=== PATIENT | female | born 1955 | race Caucasian/White ===

== ENCOUNTER 2019-06-03 08:01 | Outpatient (CLI) | payer MEDICARE, BC, SELFPAY ==
--- NOTE | 2019-06-03 08:14 | XR_ITS ---
WS: [id number] PELVIS AND RIGHT HIP HISTORY: R HIP PAIN/LIMP COMPARISON: None available. Right hip: No acute fracture or dislocation. Severe narrowing of the joint space. Bone upon bone with sclerosis. Subchondral cystic changes and hypertrophic osteophyte development on both sides of the j oint space. Only mild narrowing of the LEFT hip joint. No osseous destruction. No soft tissue abnormalities. XR/XR hip RT 2-3V wo/w pel* [id number] IMPRESSION: 1. Severe RIGHT hip osteoarthritis. 2. Mild LEFT hip osteoarthritis.
== END 2019-06-03 08:02 | disposition home or self-care (01) ==
LOC: RAD 08:12
PROVIDERS: Family Provider Family Medicine; PCP Family Medicine; Visit Provider Family Medicine
DX: R26.89 Other abnormalities of gait and mobility (principal); M16.0 Bilateral primary osteoarthritis of hip; M25.551 Pain in right hip
CPT/HCPCS: 73502

== ENCOUNTER → 2019-06-23 13:38 | Outpatient (BNVA) | payer BC, MEDICARE, SELFPAY | PROVIDERS: Family Provider Family Medicine; PCP Family Medicine; Referring Provider Family Medicine; Visit Provider Orthopaedic Surgery | DX: M87.851 Other osteonecrosis, right femur (principal); M25.551 Pain in right hip | CPT/HCPCS: 73502 ==

== ENCOUNTER 2019-07-22 11:55 | Inpatient (IN) | payer MEDICARE, BC, SELFPAY ==
[2019-07-15 08:33] VITALS: BMI 23.2
--- NOTE | 2019-07-15 08:56 | ANES.PREANE2 ---
Pre-Anesthetic Assessment Pre-Anesthetic Assessment: Height/Weight: Height 1.69 m Weight 66.224 kg Preop Diagnosis: DJD right hip Proposed Procedure: Operation Date: 07/22/19 10:30 Proposed Procedures p Anterior Total Hip Arthroplasty with Orthalign(Right) - Brandon Guevara DO Familial anesthetic complications: No trouble with anesthesia Social: Social History: No alcohol and No tobacco Exam: Pre-Anes Outpt Exam: alert, oriented x 3, clear to auscultation bilaterally and regular rate & rhythm Airway: Cervical ROM: WNL MP: 2 Additional comments: missing Pulmonary: Pulmonary: None reported Comments: URI in june; had fever, no symptoms now CV/HEM: CV/HEM: None reported : : None reported Hepatic: Hepatic: None reported GI: GI: None reported Metabolic: Metabolic: Hyperlipidemia Musc/skel: Musc/skel: OA/DJD Neuropsych: Neuropsych: None reported Anesthetic Plan: ASA status: 2 Anesthesia: General Risk of > 500 ml blood loss (7ml/kg in children): No PFSH Anesthesia PFSH: Medical History (Updated 06/25/19 @ 15:07 by Brandon Guevara DO) Degenerative arthritis of hip right hip Social History (Updated 06/23/19 @ 13:32 by Gary Thompson LPN) Smoking and tobacco status: never smoked Alcohol intake: never Data Anesthesia Cardiac Studies: No Data to Display
[2019-07-15 09:05] LABS: Add Urine Microscopic? NO
[2019-07-15 09:10] LABS: Basophils # 0.1 10^3/uL (0.0-0.1); Basophils % 1.1 %; Eosinophils # 0.2 10^3/uL (0.0-0.8); Eosinophils % 2.9 %; Hematocrit 38.5 % (37.0-47.0); Hemoglobin 12.8 g/dL (11.5-15.3); Lymphocytes # 1.7 10^3/uL (0.8-4.8); Lymphocytes % 30.4 %; Mean Corpuscular HGB Conc 33.2 g/dL (30.0-36.0); Mean Corpuscular Hemoglobin 27.5 pg (28.0-34.0); Mean Corpuscular Volume 82.8 fL (81-99); Mean Platelet Volume 10.4 fL (7.4-10.4); Monocytes # 0.6 10^3/uL (0.2-0.9); Neutrophils % 54.4 %; Nucleated Red Blood Cells % 0 %; Platelet Count 285 10^3/cmm (130-400); Red Blood Count 4.65 10^6/uL (4.1-5.3); Red Cell Distribution Width 15.7 % (12.1-15.1); White Blood Count 5.6 10^3/uL (4.0-10.0)
[2019-07-15 09:15] LABS: Anion Gap 14.3 (5-19); Blood Urea Nitrogen 17 mg/dL (8-23); Calcium 9.7 mg/dL (8.5-10.5); Carbon Dioxide 26 mmol/L (22-29); Chloride 104 mmol/L (98-107); Glucose 106 mg/dL (65-115); Osmolality Calculated 287 mOsm/kg (285-295); Potassium 4.3 mmol/L (3.5-5.1); Sodium 140 mmol/L (136-145)
[2019-07-15 09:26] LABS: Bilirubin Urine Neg (NEGATIVE); Blood Urine Neg (Negative); Glucose Urine UA Norm (Normal); Ketones Urine Negative (Negative); Leukocyte Esterase Urine Negative (Negative); Nitrate Urine Negative (Negative); Protein Urine Neg (Negative); Sulfosalicylic Acid Urine Negative; Urine Appearance Clear (CLEAR); Urine Color Straw (Yellow); Urobilinogen Urine Norm (Negative)
[2019-07-22] VITALS (24 sets, daily range): BP systolic 90–173; BP diastolic 53–93; PULSE 68–96; RESP 12–20; TEMP 36.3–37.2; O2SAT 92–100
--- NOTE | 2019-07-22 | XR_ITS ---
WS: [id number] XR hip RT 1V wo/w pel [id number] REASON FOR EXAM: OR PICS, ORIF RIGHT HIP FINDINGS: Total hip replacement is noted the prosthesis are seen in good alignment. C-arm images were utilized for insertion of the prosthesis. XR/XR hip RT 1V wo/w pel [id number] IMPRESSION: Hip replacement satisfactory.
--- NOTE | 2019-07-22 | SCC_ITS ---
Procedure Done: Right total hip arthroplasty 48.8 seconds of fluoroscopic guidance, for a cumulative dose of 4.96 mGy, was provided to Dr. Guevara by the radiology department. C-arm images of the RIGHT hip were saved for the patient's permanent record. [facility] CENTERSoila
--- NOTE | 2019-07-22 06:28 | ECG_ITS ---
Measurements Intervals [place] Rate: 67 P: 49 DC: 159 QRS: 14 QRSD: 96 T: 32 QT: 418 QTc: 442 SINUS RHYTHM No previous ECG available for comparison Electronically Signed On 07-22-2019 13:00:46 CDT by Patrizia Leal M.D. [email or web address]
[2019-07-22] MEDS: gabapentin 300 mg Capsule PO (06:40)
[2019-07-22] MEDS: acetaminophen 500 mg Tablet 1000 MG PO ×2 (06:41→20:42)
[2019-07-22] MEDS: ketorolac 30 mg/mL INJ IVP (06:54)
[2019-07-22] MEDS: sodium chloride 0.9% 1,000 ML 30 ML IV (06:54)
[2019-07-22] MEDS: vancomycin 1,000 MG in sodium chloride 0.9% 250 ML 250 MG IV ×2 (07:00→23:19)
--- NOTE | 2019-07-22 07:11 | W.PM.OPSUD ---
Surgery/Procedure H&P Update DATE OF PROCEDURE: July 22, 2019 DATE H&P PERFORMED: 06/27/19 H&P UPDATE INFORMATION: I have reviewed H&P completed within last 30 days PREOP DIAGNOSIS: DJD right hip PRIMARY INDICATION FOR PROCEDURE: as above PLANNED PROCEDURE: Operation Date: 07/22/19 08:00 Proposed Procedures p Anterior Total Hip Arthroplasty with Orthalign(Right) - Brandon Guevara DO
--- NOTE | 2019-07-22 07:59 | PM.OP ---
Operative Report Date of procedure: July 22, 2019 Pre-op Diagnosis: DJD right hip Post-op diagnosis: same Procedure Done: Right total hip arthroplasty Imageless computer-assisted navigation Implants: Iota total hip implants Trident 2 Tritanium cluster hole acetabular shell 56 mm outer diameter alpha code F Trident X3 0 degree polyethylene insert 36 mm inner diameter alpha code F 6.5 mm low-profile hex screw 6.5 mm diameter 30 mm length Accolade 2 127 degree neck angle hip stem size 5 V 40 taper Biolox delta ceramic V 40 femoral head outer diameter 36 mm neck length -5 mm Specimens removed/disposition: Femoral head and neck from right hip Surgeon: Brandon Guevara Anesthesia: General Estimated blood loss (mL): 600 Urine output (mL): 600 Complications: None Findings: Advanced DJD left hip Condition: stable Disposition: PACU Brief History: 64-year-old white female with progressively disabling right hip pain. Range of motion shows it to be limited with pain at extremes of range of motion. X-rays show advanced DJD of right hip. Procedure: 2 g Ancef 1 g vancomycin 1 g of TXA at start of procedure and at start of closure Iota implants Trident X30 degree polyethylene insert 36 mm inner diameter alpha code F Trident tritanium cluster hole acetabular shell 56 mm alpha code F 6.5 mm low profile hip screw 6.5 mm diameter x 30 mm in length Accolade II 132? neck angle hip stem size 5 Biolox delta ceramic V 40 femoral head outer diameter 36 mL neck length -5.0 mm Patient identified. Surgical site signed. Surgical permit signed. Patient received 1 g Vancomycin and 2 g of Ancef IV for surgical prophylaxis. She was taken to the operating room. She was placed under general anesthesia. She was then transferred to the [place] table and positioned for right hip surgery via direct anterior approach. The patient was then sterilely prepped and draped usual fashion. 1 g of TXA was administered intravenousl prior to skin incision.Two small stab wound were made 2-4 cm posterior to the ASIS and 2 threaded pins were placed in a parallel fashion. The Hip Align pelvic base was attached to the parallel pins and secured into place by tightening screws of the pelvic base. A 12 cm skin incision was made with a #10 blade 2 fingerbreadths lateral to and 2 fingerbreadths distal to the anterior superior iliac spine. Full-thickness skin flaps were made down to the level of the fascia overlying the tensor fascia nisa muscle. Skin edge bleeders were coagulated with electrocautery. Using electrocautery the fascia overlying the tensor fascia nisa muscle was incised and with finger dissection the plane between the tensor fascia nisa muscle and the sartorius muscle superficially and the tensor fascia nisa and the rectus femoris muscle deeply was developed retractors were placed about the superior and inferior aspects of the joint capsule about the femoral neck. Circumflex vessels were identified and coagulated with electrocautery and then divided with electrocautery. Using a deep knife a Z-shaped capsular incision was made beginning superior and laterally on the femoral head, then obliquely in the midline of the femoral neck and then medially about the base of the femoral neck. Anterior capsulectomy was performed after further releases were performed medially and laterally about the base of the femoral neck. A proximal femoral tack reference pin was placed for the HipAlign device. Hip navigation registration points were then taken.An oscillating saw was used cut the femoral neck and an additional 3mm napkin ring of of the femoral neck was cut with the saw. The portion of the femoral neck that was divided with the oscillating saw was removed and then using a T-handle corkscrew the femoral head was removed. The femoral head was sized at approximately 48 mm in diameter. Labral tissue was removed using a deep knife and a Rongeur was used to remove remnants of the ligamentum teres. The acetabulum was reamed up to a size 56 reamer using fluoroscopic assistance. A 56 mm acetabular shell was inserted and impacted into place using HipAlign navigation to insert the hip with 40 degrees of hip abduction and 12 degrees of anteversion. The cup was additionally was secured with a 6.5 x 30 mm cancellous screw. The 56 mm polyethylene liner liner 0 degree liner 36 mm inner diameter was inserted and impacted into position. The femur was now prepared by repositioning the limb and extension, adduction and external rotation using the spar of the [place] table. Retractors were placed about the proximal femur. Soft tissue releases about the proximal femur were performed circumferentially. A hook was then attached to the [place] table and the femur was elevated within the wound. The cut surface of the femur was then prepared with a motorized bur followed by a rat tail rasp. We began with the starter broach and up to a size 5 broach. calcar planing was then performed. We then placed a standard offset neck with a trial 36 mm diameter head with a -5 mm neck offset. Fluoroscopic imaging showed that the right hip equal in limb length to the left hip with equal offset compared to the opposite operated hip. Navigation showed 5 mm lengthening this was felt accepctabe due to extreme wear of the hip. Comparing patellas equal lengths were acheived. The hip was dislocated and trial components were removed. The actual size 5 stem was then inserted and I attempted to impact the stem slightly deeper into the femur then the trial had been impacted by 1-2 mm. A ceramic head 36 mm in diameter with a -5 mm offset was then placed on the Spence taper and impacted in position and the hip once again reduced. Fluoroscopic imaging demonstrated slightly lengthened right limb length approximately equal length and offset of the hip as compared to the contralateral hip. Fluoroscopic images demonstrated that the hip was reduced and no apparent complications such as fracture were observed. Navigation showed 5mm of lengthening. The navigation tack was removed. The wound was irrigated with Betadine-containing saline and antibiotic containing saline solution. FloSeal was placed in the wound for hemostasis. Vancomycin powder 1 g was placed in the wound for additional antimicrobial prophylaxis. A large Hemovac drain was placed from inside out. 1 g of TXA was administered intravenously prior to wound closure.The fascia of the tensor fascia nisa muscle was then closed with a combination of interrupted #2 permanent sutures along with a barbed suture. The skin was closed in layers with the ultimate layer being a running Monocryl subcuticular suture followed by Steri-Strips and Dermabond on skin. The navigation base and 2 pins placed in the pelvis were removed. The percutaneous pin sites were reapproximated with Dermabond and Steri-Strips. Sterile dressings were applied. The patient was then aroused from general anesthesia and transferred to the recovery room in stable and satisfactory condition. At the end of the surgical procedure all counts were correct. The patient tolerated the procedure well.
[2019-07-22] MEDS: neomycin-poly-bacitracin oint 28 gm 1 APPLIC TOPICAL (09:33)
[2019-07-22] MEDS: vancomycin 1,000 MG SDV 1000 MG XX (09:34)
[2019-07-22] MEDS: fentaNYL 50 mcg/mL INJ 2mL IVP ×2 (11:54→12:00)
--- NOTE | 2019-07-22 11:54 | XR_ITS ---
WS: [id number] XR hip RT 2-3V wo/w pel* [id number] REASON FOR EXAM: post op right thr FINDINGS: Total hip replacement on the right side the prosthesis in the acetabulum is well seated. Th e stem of the prosthesis in the femoral shaft is normally position. XR/XR hip RT 2-3V wo/w pel* [id number] IMPRESSION: Total hip replacement satisfactory alignment.
[2019-07-22] MEDS: morphine 4 mg/mL SDV 1 mL 2 MG IVP ×2 (12:14→12:16)
[2019-07-22] MEDS: ketorolac 30 mg/mL INJ 15 MG IVP ×2 (13:27→23:34)
[2019-07-22] MEDS: sodium chloride 0.9% 1,000 ML 100 ML IV ×2 (13:28→23:19)
[2019-07-22] MEDS: calcium carbonate 500 mg Chew Tablet 1000 MG PO (16:53)
[2019-07-22] MEDS: iron polysaccharide complex 150 mg Capsule PO (16:53)
[2019-07-22] MEDS: chlorhexidine gluconate 0.12% Btl 473 mL 30 ML MUCOUS MEM ×2 (16:53→20:43)
[2019-07-22] MEDS: sennosides-docusate Tablet 2 TAB PO (16:54)
[2019-07-22] MEDS: oxyCODONE 5 mg IR Tab/Cap PO (16:54)
[2019-07-22] MEDS: ondansetron 2 mg/ML SDV 2 mL 4 MG IVP (17:47)
[2019-07-22] MEDS: atorvastatin 40 mg Tablet 20 MG PO (20:42)
[2019-07-22] MEDS: mupirocin oint 22 gm 1 APPLIC NASAL (20:42)
[2019-07-22] MEDS: apixaban 5 mg Tablet 2.5 MG PO (23:20)
[2019-07-23] VITALS (16 sets, daily range): BP systolic 89–116; BP diastolic 41–69; PULSE 71–108; RESP 14–20; TEMP 36.6–37.2; O2SAT 93–100
[2019-07-23] MEDS: acetaminophen 500 mg Tablet 1000 MG PO ×3 (05:23→20:09)
[2019-07-23 06:47] LABS: Basophils % 0.1 %; Hematocrit 24.8 % (37.0-47.0); Lymphocytes # 1.9 10^3/uL (0.8-4.8); Lymphocytes % 13.6 %; Mean Corpuscular HGB Conc 32.3 g/dL (30.0-36.0); Mean Corpuscular Hemoglobin 27.7 pg (28.0-34.0); Mean Corpuscular Volume 85.8 fL (81-99); Mean Platelet Volume 10.9 fL (7.4-10.4); Monocytes # 1.5 10^3/uL (0.2-0.9); Monocytes % 11.2 %; Neutrophils # 10.3 10^3/uL (1.8-7.7); Neutrophils % 74.7 %; Nucleated Red Blood Cells % 0 %; Platelet Count 232 10^3/cmm (130-400); Red Blood Count 2.89 10^6/uL (4.1-5.3); Red Cell Distribution Width 15.8 % (12.1-15.1); White Blood Count 13.8 10^3/uL (4.0-10.0)
[2019-07-23 07:01] LABS: Anion Gap 9.7 (5-19); Blood Urea Nitrogen 13 mg/dL (8-23); Calcium 8.2 mg/dL (8.5-10.5); Carbon Dioxide 27 mmol/L (22-29); Chloride 109 mmol/L (98-107); Glucose 97 mg/dL (65-115); Osmolality Calculated 290 mOsm/kg (285-295); Potassium 3.7 mmol/L (3.5-5.1); Sodium 142 mmol/L (136-145)
--- NOTE | 2019-07-23 07:29 | PM.PN ---
Subjective Subjective: Interval history: 64-year-old white female postoperative day 1 status post status post right total hip arthroplasty for degenerative arthritis. complaint of lightheadedness today Vitals/I&O/Wt Last Vital Signs Temp 97.9 F 07/23/19 04:43 Pulse 76 07/23/19 04:43 Resp 18 07/23/19 04:43 BP 91/41 07/23/19 04:43 Pulse Ox 96 07/23/19 04:43 07/22/19 07/23/19 07/23/19 22:59 06:59 14:59 Intake Total 110 / 2230 1285 / 3515 Output Total 900 / 2700 715 / 3415 Balance -790 / -470 570 / 100 Physical Exam Const: GENERAL APPEARANCE: cooperative, comfortable and other (pale) NUTRITIONAL APPEARANCE: thin ORIENTATION/CONSCIOUSNESS: Yes awake and Yes oriented to person; not confused and not obtunded Neck/C-Spine: COMMON NORMALS: no JVD Resp: COMMON NORMALS: normal respiratory effort, no retractions and clear to auscultation bilaterally AUSCULTATION: clear to auscultation bilaterally Cardio: COMMON NORMALS: no JVD, regular rate, regular rhythm, S1 normal heart sound and S2 normal heart sound RATE: regular rate RHYTHM: regular rhythm HEART SOUNDS: S1 normal and S2 normal GI: COMMON NORMALS: normal to inspection, nondistended, normoactive bowel sounds, soft to palpation and non-tender PALPATION: Yes soft Extremity: NARRATIVE EXTREMITY EXAM: dressing intact over right hip, Hemovac drain pulled from wound, no calf tenderness bilaterally Neuro: SENSORIUM/ORIENTATION: Yes oriented to person Urinary Catheter Management^: F: Cath Placed During This Visit: yes Urinary Catheter Date of Insertion: 07/22/19 Urinary Catheter Time of Insertion: 08:50 Data : 07/23/19 06:02 07/23/19 06:02 A&P Assessment and plan (1) History of total right hip arthroplasty: remove Shipman catheter drain pulled today from right hip Finish postoperative IV antibiotics Continue VTE prophylaxis with mobilization, SCDs and pharmacologic prophylaxis. Patient highest risk for VTE transfused 2 units of packed red blood cells this patient is symptomatic with hypotension and dizziness with hemoglobin of 8 postoperatively Discharge planning. Discharged with home health when pain is controlled. patient is able to ambulate safely. Status: Acute Code(s): Z96.641 - Presence of right artificial hip joint (2) Postoperative anemia due to acute blood loss: Status: Acute Code(s): D62 - Acute posthemorrhagic anemia Attestations Medical Necessity Statement*: patient requires continued inpatient level care following left total hip arthroplasty. Patientto be transfused 2 units of packed red blood cells. Patient requires physical therapy postoperatively. Pain control needs to be verified prior to discharge Time Spent in Patient Care: 16 - 35 minutes Coding Level of Care Code Acute Control Integration Engineer for Emmy Kimball Diagnoses History of total right hip arthroplasty Z96.641 Postoperative anemia due to acute blood loss D62
[2019-07-23] MEDS: mupirocin oint 22 gm 1 APPLIC NASAL ×2 (09:45→18:17)
[2019-07-23] MEDS: ketorolac 30 mg/mL INJ 15 MG IVP ×2 (09:46→15:16)
[2019-07-23] MEDS: sennosides-docusate Tablet 2 TAB PO ×2 (09:56→18:14)
[2019-07-23] MEDS: cholecalciferol (vitamin D3) 1,000 unit Tablet 1000 UNIT PO (09:56)
[2019-07-23] MEDS: multivitamin therapeutic Tablet 1 TAB PO ×2 (09:56)
[2019-07-23] MEDS: iron polysaccharide complex 150 mg Capsule PO ×2 (09:56→18:14)
[2019-07-23] MEDS: calcium carbonate 500 mg Chew Tablet 1000 MG PO ×2 (09:57→18:14)
[2019-07-23] MEDS: chlorhexidine gluconate 0.12% Btl 473 mL 30 ML MUCOUS MEM ×4 (10:02→20:10)
[2019-07-23] MEDS: aspirin 81 mg EC Tablet PO ×2 (10:50→18:14)
[2019-07-23] MEDS: sodium chloride 0.9% 100 ML ×2 (12:18→15:31)
[2019-07-23] MEDS: sodium chloride 0.9% 1,000 ML 100 ML IV ×2 (12:43→22:34)
[2019-07-23] MEDS: FUROsemide 10 mg/mL SDV 4mL 40 MG IVP (12:54)
--- NOTE | 2019-07-23 14:55 | PC.OT ---
OT EVALUATION ORDERS RECEIVED. PATIENT IS IN PROCESS OF RECEIVING MORE BLOOD PRODUCTS. NURSE REPORTS THAT WHEN GETTING UP TO [facility] BECAME VERY LIGHT HEADED AND WEAK. AGREEABLE TO ATTEMPT AGAIN TOMORROW.
[2019-07-23] MEDS: atorvastatin 40 mg Tablet 20 MG PO (20:09)
[2019-07-24 00:02] VITALS: BP 99/61; PULSE 80; RESP 18; TEMP 36.8; O2SAT 95
[2019-07-24 04:29] VITALS: BP 100/63; PULSE 78; RESP 18; TEMP 37; O2SAT 95
[2019-07-24] MEDS: acetaminophen 500 mg Tablet 1000 MG PO ×2 (05:10→12:40)
--- NOTE | 2019-07-24 07:16 | P.PN_ITS ---
Subjective Subjective: Interval history: 64-year-old white female postoperative day 2 status post right total hip arthroplasty for degenerative arthritis. She was hypotensive and symptomatic with acute blood loss anemia from surgery. She received 2 units of packed red blood cells with Lasix in between the units yesterday. Following the 2 units transfusion her symptoms were markedly improved no complaints of lightheadedness with transfer and she was able to participate in physical therapy for a small part in the afternoon. A.m. labs are pending Vitals/I&O/Wt Last Vital Signs Temp 98.6 F 07/24/19 04:29 Pulse 78 07/24/19 04:29 Resp 18 07/24/19 04:29 BP 100/63 07/24/19 04:29 Pulse Ox 95 07/24/19 04:29 07/23/19 07/24/19 07/24/19 22:59 06:59 14:59 Intake Total 1563.333 / 3093.333 120 / 3213.333 Output Total 150 / 150 Balance 1563.333 / 3093.333 -30 / 3063.333 Physical Exam Narrative: EXAM NARRATIVE: 64-year-old white female no acute distress Neck/C-Spine: COMMON NORMALS: no JVD Resp: COMMON NORMALS: normal respiratory effort, no use of accessory muscles and clear to auscultation bilaterally AUSCULTATION: clear to auscultation bilaterally Cardio: COMMON NORMALS: no JVD, regular rate and regular rhythm RATE: regular rate RHYTHM: regular rhythm GI: COMMON NORMALS: normal to inspection, nondistended, normoactive bowel sounds, soft to palpation and non-tender PALPATION: Yes soft Extremity: NARRATIVE EXTREMITY EXAM: Dressings removed right hip. New dressing applied to drain site. Right hip incision site clean dry and intact no evidence of infection. No calf tenderness bilaterally. Urinary Catheter Management^: F: Cath Placed During This Visit: yes Urinary Catheter Date of Insertion: 07/22/19 Urinary Catheter Time of Insertion: 08:50 Data : 07/24/19 05:03 07/24/19 05:03 A&P Assessment and plan (1) History of total right hip arthroplasty: Continue to mobilize. Review a.m. labs Pain control Start cefuroxime 500 mg p.o. twice daily for extended oral prophylaxis Discharge planning depending on patient's symptoms and pain control she may be able to be discharged today versus potentially tomorrow Status: Acute Code(s): Z96.641 - Presence of right artificial hip joint (2) Postoperative anemia due to acute blood loss: Status: Acute Code(s): D62 - Acute posthemorrhagic anemia Attestations Medical Necessity Statement*: Discharge planning in progress. Remains to be seen of the patient can be safely discharged today. Time Spent in Patient Care: 16 - 35 minutes Coding Level of Care Code Acute Automobile Damage Field Appraiser for Emmy Fwd Exam Expanded Problem Focused Diagnoses History of total right hip arthroplasty Z96.641 Postoperative anemia due to acute blood loss D62
[2019-07-24 08:00] VITALS: BP 110/74; PULSE 79; RESP 17; TEMP 36.7; O2SAT 96
[2019-07-24 08:32] LABS: Basophils % 0.3 %; Eosinophils % 0.5 %; Hematocrit 22.7 % (37.0-47.0); Hemoglobin 7.6 g/dL (11.5-15.3); Lymphocytes # 1.7 10^3/uL (0.8-4.8); Lymphocytes % 21.9 %; Mean Corpuscular HGB Conc 33.5 g/dL (30.0-36.0); Mean Corpuscular Hemoglobin 28.7 pg (28.0-34.0); Mean Corpuscular Volume 85.7 fL (81-99); Monocytes # 1.1 10^3/uL (0.2-0.9); Monocytes % 14.7 %; Neutrophils # 4.8 10^3/uL (1.8-7.7); Neutrophils % 62.2 %; Nucleated Red Blood Cells % 0 %; Platelet Count 157 10^3/cmm (130-400); Red Blood Count 2.65 10^6/uL (4.1-5.3); Red Cell Distribution Width 15.7 % (12.1-15.1); White Blood Count 7.8 10^3/uL (4.0-10.0)
[2019-07-24 08:51] LABS: Anion Gap 12.6 (5-19); Blood Urea Nitrogen 16 mg/dL (8-23); Calcium 8.1 mg/dL (8.5-10.5); Carbon Dioxide 24 mmol/L (22-29); Chloride 110 mmol/L (98-107); Glomerular Filtration Rate 100.3 mL/min (90-130); Glucose 94 mg/dL (65-115); Osmolality Calculated 292 mOsm/kg (285-295); Potassium 3.6 mmol/L (3.5-5.1); Sodium 143 mmol/L (136-145)
[2019-07-24] MEDS: sodium chloride 0.9% 1,000 ML 100 ML IV (08:51)
[2019-07-24] MEDS: aspirin 81 mg EC Tablet PO (08:52)
[2019-07-24] MEDS: multivitamin therapeutic Tablet 1 TAB PO ×2 (08:52)
[2019-07-24] MEDS: sennosides-docusate Tablet 2 TAB PO (08:52)
[2019-07-24] MEDS: iron polysaccharide complex 150 mg Capsule PO (08:52)
[2019-07-24] MEDS: mupirocin oint 22 gm 1 APPLIC NASAL (08:52)
[2019-07-24] MEDS: cholecalciferol (vitamin D3) 1,000 unit Tablet 1000 UNIT PO (08:52)
[2019-07-24] MEDS: calcium carbonate 500 mg Chew Tablet 1000 MG PO (08:52)
[2019-07-24] MEDS: chlorhexidine gluconate 0.12% Btl 473 mL 30 ML MUCOUS MEM (08:53)
--- NOTE | 2019-07-24 09:49 | P.DS_ITS ---
Discharge Providers Date of Admission: 07/22/19 11:55 Date of Discharge: July 24, 2019 Attending Provider at Admission: Brandon Guevara DO Attending Provider at Discharge: Brandon Guevara DO Primary Care Provider: Denys Green DO Diagnoses at Discharge Discharge Diagnosis (1) History of total right hip arthroplasty: Status: Acute Problem details: Date of surgery 07/22/2023 uncemented right total hip arthroplasty with imageless computer-assisted navigation (2) Postoperative anemia due to acute blood loss: Status: Acute Problem details: Symptoms resolved following transfusion 2 units packed red blood cells Reason for Visit Reason for Visit: Reason For Visit: Primary Osteoarthrtis of right hip Hospital Course Hospital Course: Patient was taken the operative room on 07/22/2019 for elective right total hip arthroplasty. Patient received vancomycin and Ancef intravenously for surgical prophylaxis pre-and postop. No complications from surgical procedure were noted immediate postoperative x-rays show satisfactory placement of implants. On postoperative day 1 the patient was noted to be hypotensive and symptomatic with dizziness hemoglobin of approximately 8 g. She was transfused 2 units of packed red blood cells her symptoms of dizziness resolved. Blood pressure improved. Hemoglobin time of discharge was 7.6 hematocrit 22.7 normal white blood cell count of 7.8 serum electrolytes were essentially within normal limits and required no intervention. Shipman catheter was removed on postoperative day 1. Drain from the right hip site was removed on postoperative day 1. Dressing changed on postoperative day 2 her incision sites are intact. Pin sites for insertion of the pins for the computer navigation device have healed nicely. No active drainage from the drain site noted. No calf tenderness bilaterally. Patient be discharged with home health with home nursing and physical therapy will monitor blood count and electrolytes on outpatient basis. Home physical therapy for the next 2 weeks also be ordered. Patient to follow-up in the office in approximately 2 weeks time for recheck examination and follow-up x- rays Physical Exam Narrative: EXAM NARRATIVE: 64-year-old white female in no acute distress. She is alert and cooperative. Lungs are clear to auscultation. Heart is regular rate and rhythm. Abdomen soft nontender with active bowel sounds. Her right hip incision is healing nicely no evidence of infection scant drainage from the drain site with no erythema. No calf tenderness bilaterally. Urinary Catheter Management^: F: Cath Placed During This Visit: yes Urinary Catheter Date of Insertion: 07/22/19 Urinary Catheter Time of Insertion: 08:50 Discharge Data Data Completed and Pending: Completed Studies During Hospitalization Category Date Time Status XR hip RT 1V wo/w pel [id number] Routine Exams 07/22/19 Completed XR hip RT 2-3V wo /w pel* [id number] Rout ine Exams 07/22/19 11:54 Completed Pending at discharge Category Date Time Status Basic Metabolic P tenisha Routine Lab 07/24/19 07:14 Ordered Complete Blood Co unt w/Auto Routine Lab 07/24/19 07:14 Ordered Type and Screen R outine Lab 07/15/19 08:19 Ordered Pathology: Surgic al [PTH] Routine Pth 07/22/19 11:20 Received Labs from last 24 hours 07/24/19 07/24/19 07/22/19 05:03 05:03 07:15 WBC 7.8 RBC 2.65 L Hgb 7.6 L Hct 22.7 L MCV 85.7 MCH 28.7 MCHC 33.5 RDW 15.7 H Plt Count 157 MPV 11.0 H Neut % (Auto) 62.2 Lymph % (Auto) 21.9 Ashley % (Auto) 14.7 Eos % (Auto) 0.5 Baso % (Auto) 0.3 Neut # (Auto) 4.8 Lymph # (Auto) 1.7 Ashley # (Auto) 1.1 H Eos # (Auto) 0.0 Baso # (Auto) 0.0 Nucleated RBC % (a uto) 0 Nucleated RBCs # 0.0 Sodium 143 Potassium 3.6 Chloride 110 H Carbon Dioxide 24 Anion Gap 12.6 BUN 16 Creatinine 0.6 GFR Calculation 100.3 Glucose 94 Calculated Osmolal ity 292 Calcium 8.1 L Blood Type A Positive Rho(D) Type Positive Antibody Screen Negative Crossmatch See Detail Vitals: Last Vital Signs Temp 98.1 F 07/24/19 08:00 Pulse 79 07/24/19 08:00 Resp 17 07/24/19 08:00 BP 110/74 07/24/19 08:00 Pulse Ox 96 07/24/19 08:00 Discharge Plan Discharge Patient Disposition: Home Health Service Condition: Stable Prescriptions: New oxycodone-acetaminophen 5-325 mg tablet 1 tab PO Q4H PRN (Reason: pain) 7 Days Qty: 40 RF: 0 cefuroxime axetil 500 mg tablet 500 mg PO BID 7 Days Qty: 14 RF: 0 Eliquis 2.5 mg tablet 2.5 mg PO BID 14 Days Qty: 28 RF: 0 Continued simvastatin 20 mg tablet 20 mg PO DAILY RF: 0 aspirin [Adult Low Dose Aspirin] 81 mg tablet,delayed release (DR/EC) 81 mg PO DAILY RF: 0 multivitamin Tablet 1 tab PO DAILY RF: 0 Discharge Orders: Discharge Order (Routine); Ordered 07/24/19 Ordered By: Brandon Guevara Referrals: Brandon Guevara DO [Physician] - 08/06/19 8:30 am (wound check, xrays right hip) Discharge Diet: Usual diet Discharge Activity: Limit activity as instructed, Use walker/crutches as instructed and As per PT/OT instructions Patient Instructions: Cefuroxime (By mouth), Oxycodone, Slow Release (By mouth), Apixaban (By mouth), Iron Rich Diet (DC), Total Hip Replacement (DC), Anemia (DC) Activity Restrictions/Additional Instructions: Weightbearing as tolerated right hip May shower apply antibiotic ointment and Band-Aid to drain site until no drainage from drain site and no need to apply Band-Aid or antibiotic ointment. May climb stairs when felt comfortable do so May use assistive device walker progressing to a cane and no assistive device as felt comfortable do so. Perform ankle pumps, isometric contractions of calf and thigh muscles as well as gluteal squeezes in that order to decrease risk of blood clots and also to strengthen lower extremity muscles Discharge Attestations Time Spent in Discharge Care*: less than 30 min Status at Discharge: Cognitive status at discharge: cognitively intact , Behavioral status at discharge: cooperative , Functional status at discharge: uses cane/walker Overall status at discharge: patient is not back to baseline Quality Metrics Clinical Quality Measures During this hospital stay, did patient experience: None Coding Level of Care Code Acute Supervisor Brake Repair for Emmy Fwcristina Diagnoses History of total right hip arthroplasty Z96.641 Postoperative anemia due to acute blood loss D62
[2019-07-24 09:56] VITALS: BP 110/74; PULSE 79; RESP 17; TEMP 36.7; O2SAT 96
[2019-07-24 11:27] VITALS: BP 106/68; PULSE 77; RESP 18; TEMP 36.7; O2SAT 98
[2019-07-24 16:34] VITALS: BP 106/68; PULSE 77; RESP 18; TEMP 36.7; O2SAT 98
== END 2019-07-24 16:00 | disposition home or self-care (01) | DRG 470 ==
LOC: MEDSURG 19:54
PROVIDERS: Admitting Provider Orthopaedic Surgery; Family Provider Family Medicine; PCP Family Medicine; Visit Provider Orthopaedic Surgery
PROC: 0SR904Z Replacement of Right Hip Joint with Ceramic on Polyethylene Synthetic Substitute, Open Approach (ICD-10-PCS; CPT 27130; principal; 2019-07-22 08:00)
DX: M16.11 Unilateral primary osteoarthritis, right hip (principal); D62 Acute posthemorrhagic anemia
CPT/HCPCS: 12345; 36415; 36430; 73501; 73502; 76000; 80048; 81003; 85025; 86850; 86900; 86920; 88304; 93005; 96365; 96374; 96375; 97110; 97116; 97162; 97166; 97530; C1713; C1776; C9290; J0131; J0690; J1100; J1580; J1885; J1940; J2001; J2270; J2405; J2704; J3010; J3370; J3490; J7030; J7050; P9016

== ENCOUNTER 2019-07-25 12:46 | Outpatient (CLI) | payer MEDICARE, SELFPAY ==
[2019-07-25 13:27] LABS: Basophils % 0.2 %; Eosinophils # 0.1 10^3/uL (0.0-0.8); Hematocrit 22.5 % (37.0-47.0); Hemoglobin 7.6 g/dL (11.5-15.3); Lymphocytes # 1.9 10^3/uL (0.8-4.8); Lymphocytes % 21.1 %; Mean Corpuscular HGB Conc 33.8 g/dL (30.0-36.0); Mean Corpuscular Hemoglobin 28.9 pg (28.0-34.0); Mean Corpuscular Volume 85.6 fL (81-99); Mean Platelet Volume 10.8 fL (7.4-10.4); Monocytes % 11.1 %; Neutrophils # 5.8 10^3/uL (1.8-7.7); Neutrophils % 66.3 %; Nucleated Red Blood Cells % 0 %; Platelet Count 184 10^3/cmm (130-400); Red Blood Count 2.63 10^6/uL (4.1-5.3); Red Cell Distribution Width 15.9 % (12.1-15.1); White Blood Count 8.8 10^3/uL (4.0-10.0)
[2019-07-25 13:31] LABS: Alanine Aminotransferase 16 U/L (0-33); Alkaline Phosphatase 48 IU/L (35-105); Anion Gap 13.8 (5-19); Aspartate Amino Transferase 38 U/L (0-32); Blood Urea Nitrogen 12 mg/dL (8-23); Calcium 8.3 mg/dL (8.5-10.5); Carbon Dioxide 26 mmol/L (22-29); Chloride 107 mmol/L (98-107); Globulin 1.9 g/dL (1.3-4.6); Glomerular Filtration Rate 123.8 mL/min (90-130); Glucose 90 mg/dL (65-115); Osmolality Calculated 292 mOsm/kg (285-295); Potassium 3.8 mmol/L (3.5-5.1); Sodium 143 mmol/L (136-145); Total Bilirubin 0.4 mg/dL (0.15-1.2); Total Protein 4.9 g/dL (6.6-8.7)
== END 2019-07-25 12:47 | disposition home or self-care (01) ==
LOC: LAB 12:49
PROVIDERS: Family Provider Family Medicine; PCP Family Medicine; Visit Provider Orthopaedic Surgery
DX: Z98.890 Other specified postprocedural states (principal); D62 Acute posthemorrhagic anemia
CPT/HCPCS: 80053; 85025

== ENCOUNTER → 2019-08-07 08:47 | Outpatient (BNVA) | payer BC, MEDICARE, SELFPAY | PROVIDERS: Family Provider Family Medicine; PCP Family Medicine; Visit Provider Orthopaedic Surgery | DX: M16.9 Osteoarthritis of hip, unspecified (principal); Z96.641 Presence of right artificial hip joint; Z98.890 Other specified postprocedural states | CPT/HCPCS: 73502 ==

== ENCOUNTER → 2019-09-03 13:40 | Outpatient (BNVA) | payer MEDICARE, BC, SELFPAY | PROVIDERS: Family Provider Family Medicine; PCP Family Medicine; Visit Provider Orthopaedic Surgery | DX: Z96.641 Presence of right artificial hip joint (principal); M16.9 Osteoarthritis of hip, unspecified; Z48.89 Encounter for other specified surgical aftercare | CPT/HCPCS: 73502 ==

== ENCOUNTER → 2019-12-31 10:45 | Outpatient (BNVA) | payer OTHER, SELFPAY | PROVIDERS: Family Provider Family Medicine; PCP Family Medicine; Visit Provider Nurse Practitioner Family | DX: M25.539 Pain in unspecified wrist (principal) | CPT/HCPCS: 73110 ==

== ENCOUNTER 2020-07-28 08:01 | Outpatient (CLI) | payer MEDICARE, BC, SELFPAY ==
--- NOTE | 2020-07-28 08:06 | MM_ITS ---
WS: [id number] BILATERAL DIGITAL SCREENING MAMMOGRAPHY WITH CAD CLINICAL INFORMATION: SCREENING HISTORY: Screening mammogram. No current complaints. COMPARISON: TECHNIQUE: Bilateral CC and MLO views. FINDINGS: The breasts are composed of heterogeneous fibroglandular density tissue, which can limit the detectio n of small underlying mass lesions. No suspicious mass, asymmetry, calcifications, or architectural d istortion. No evidence of malignancy. Punctate calcifications. MM/[place] [id number] IMPRESSION: BI-RADS: 2-Benign FOLLOW UP: 1 Year Follow-up Recommend return to annual screening mammography.
== END 2020-07-28 08:02 | disposition home or self-care (01) ==
LOC: RADSHAW 08:05
PROVIDERS: Family Provider Family Medicine; PCP Family Medicine; Visit Provider Family Medicine
DX: Z12.31 Encounter for screening mammogram for malignant neoplasm of breast (principal)
CPT/HCPCS: 77067

== ENCOUNTER 2021-10-31 08:15 | Outpatient (CLI) | payer MEDICARE, BC, SELFPAY ==
--- NOTE | 2021-10-31 08:21 | MM_ITS ---
WS: [email or web address] BILATERAL SCREENING DIGITAL BREAST TOMOSYNTHESIS MAMMOGRAM WITH CAD HISTORY: SCREENING COMPARISON: 07/28/2020 and 03/04/2019 Bilateral CC and MLO views with tomosynthesis and synthetic mammography submitted. Computer aided det ection analyzed. Breast composition: The breasts are heterogeneously dense, which may obscure small masses. No suspici ous masses, microcalcifications or architectural distortion. MM/[place] [id number] IMPRESSION: BI-RADS: 1-Negative FOLLOW UP: 1 Year Follow-up
== END 2021-10-31 08:16 | disposition home or self-care (01) ==
LOC: RAD 08:17
PROVIDERS: PCP Family Medicine; Visit Provider Family Medicine
DX: Z12.31 Encounter for screening mammogram for malignant neoplasm of breast (principal)
CPT/HCPCS: 77063; 77067

== ENCOUNTER → 2021-11-01 11:35 | Outpatient (BNVA) | payer MEDICARE, BC, SELFPAY | PROVIDERS: PCP Family Medicine; Visit Provider Family Medicine | DX: Z00.00 Encounter for general adult medical examination without abnormal findings (principal); M19.90 Unspecified osteoarthritis, unspecified site; E78.5 Hyperlipidemia, unspecified; Z79.899 Other long term (current) drug therapy | CPT/HCPCS: 80053; 80061; 83036; 85025 ==

== ENCOUNTER 2023-01-19 08:33 | Outpatient (CLI) | payer MEDICARE, BC, SELFPAY ==
--- NOTE | 2023-01-19 08:42 | MM_ITS ---
WS: [email or web address] SCREENING DIGITAL BREAST TOMOSYNTHESIS MAMMOGRAM WITH CAD HISTORY: SCREENING COMPARISON: 10/31/2021, 07/28/2020 and 03/04/2019 Bilateral CC and MLO with tomosynthesis and synthetic mammography submitted. Computer aided detection analyzed. Breast composition: The breasts are heterogeneously dense, which may obscure small masses. Focal asym metry of increased density measures 5 mm in the anterior LEFT breast, central to the nipple seen only on the cc view. I suspect this is superimposed fibroglandular tissue. No corresponding finding on th e MLO. RIGHT breast is negative. IMPRESSION: MM/[place] [id number] BI-RADS: 0-Incomplete: Need additional imaging evaluation FOLLOW UP: Need Additional Imaging LEFT breast: Spot compression views (CC ). True ML. Ultrasound to follow if abn ormality persists.
== END 2023-01-19 08:34 | disposition home or self-care (01) ==
LOC: MOBLMAM 08:41
PROVIDERS: PCP Family Medicine; Visit Provider Family Medicine
DX: Z12.31 Encounter for screening mammogram for malignant neoplasm of breast (principal)
CPT/HCPCS: 77063; 77067

== ENCOUNTER 2023-02-06 11:24 | Outpatient (CLI) | payer MEDICARE, BC, SELFPAY ==
--- NOTE | 2023-02-06 11:33 | MM_ITS ---
WS: [email or web address] ADDITIONAL VIEWS LEFT MAMMOGRAM WITH DIGITAL BREAST TOMOSYNTHESIS. HISTORY: ABNORMAL MAMMO COMPARISON: 01/19/2023 and 10/31/2021 Spot compression views LEFT breast in CC and true ML submitted with digital breast tomosynthesis and SM. The focal area of increased density central to the nipple resolves with additional spot compression v iews. This was fibroglandular soft tissue superimposed. There are no residual masses or nodules. IMPRESSION: MM/[place] [id number] BI-RADS: 2-Benign FOLLOW UP: 1 Year Follow-up Return to annual screening mammography.
== END 2023-02-06 11:25 | disposition home or self-care (01) ==
LOC: RAD 11:28
PROVIDERS: PCP Family Medicine; Visit Provider Family Medicine
DX: R92.8 Other abnormal and inconclusive findings on diagnostic imaging of breast (principal)
CPT/HCPCS: 77061; G0279

== ENCOUNTER → 2023-05-14 13:20 | Outpatient (BNVA) | payer MEDICARE, BC, SELFPAY | PROVIDERS: PCP Family Medicine; Visit Provider Family Medicine | DX: E78.5 Hyperlipidemia, unspecified (principal) | CPT/HCPCS: 80053; 80061 ==

== ENCOUNTER 2024-03-07 08:04 | Outpatient (CLI) | payer MEDICARE, BC, SELFPAY ==
--- NOTE | 2024-03-07 08:07 | MM_ITS ---
WS: [email or web address] BILATERAL SCREENING DIGITAL TOMOSYNTHESIS MAMMOGRAM WITH CAD HISTORY: SCREENING COMPARISON: 02/06/2023, 07/28/2020, 10/05/2017 Bilateral CC and MLO views with tomosynthesis and synthetic mammography submitted. Computer aided det ection analyzed. Breast composition: The breasts are heterogeneously dense, which may obscure small masses. No suspici ous masses, microcalcifications or architectural distortion. There are a few benign calcifications LE FT breast. MM/MM scr tomosynthesis [id number] IMPRESSION: BI-RADS: 2 - Benign FOLLOW UP: 1 Year Follow-up
== END 2024-03-07 08:05 | disposition home or self-care (01) ==
LOC: RAD 08:05
PROVIDERS: PCP Family Medicine; Visit Provider Family Medicine
DX: Z12.31 Encounter for screening mammogram for malignant neoplasm of breast (principal); R92.333 Mammographic heterogeneous density, bilateral breasts; R92.1 Mammographic calcification found on diagnostic imaging of breast
CPT/HCPCS: 77063; 77067

== ENCOUNTER → 2024-07-10 09:11 | Outpatient (BNVA) | payer MEDICARE, BC, SELFPAY | PROVIDERS: PCP Family Medicine; Visit Provider Family Medicine | DX: Z00.00 Encounter for general adult medical examination without abnormal findings (principal); E78.5 Hyperlipidemia, unspecified | CPT/HCPCS: 80053; 80061 ==

== ENCOUNTER 2024-07-18 14:44 | Outpatient (CLI) | payer MEDICARE, BC, SELFPAY ==
--- NOTE | 2024-07-18 15:00 | XR_ITS ---
WS: [email or web address] SCREENING DEXA SCAN [facility] CLINICAL INFORMATION: screening COMPARISON: None. FINDINGS: The L1-L4 bone mineral density measures 0.99. This corresponds to a T score score of -1.7 and Z score of -0.1. Left femoral neck bone mineral density measures 0.652 (g/cm2). This corresponds to a T score of -2.8 (no units) and Z score of -1.4 (no units). LEFT forearm bone mineral density measures 0.63. This corresponds to a T score of -2.8 and Z score of -1.0. XR/XR DEXA axial skeleton* [id number] IMPRESSION: Osteopenia lumbar spine. Osteoporosis LEFT femoral neck. Osteoporosis LEFT fore arm Patient's FRAX calculated 10 year probability for major osteoporotic fracture i s 18.1% and osteoporotic hip fracture is 5.9%.
== END 2024-07-18 14:45 | disposition home or self-care (01) ==
PROVIDERS: PCP Family Medicine; Visit Provider Family Medicine
DX: Z00.00 Encounter for general adult medical examination without abnormal findings (principal); Z13.820 Encounter for screening for osteoporosis; M85.88 Other specified disorders of bone density and structure, other site; M81.0 Age-related osteoporosis without current pathological fracture
CPT/HCPCS: 77080